=== PATIENT | female | born 1995 | race Two or more races ===

== ENCOUNTER 2020-10-05 13:08 | Emergency (ER) | payer MEDICAID, OTHER ==
[~2020-10-05] VITALS: Ht 154.9 cm; Wt 81.6 kg
[2020-10-05 13:50] VITALS: BP 134/78
== END 2020-10-05 14:58 | disposition home or self-care (01) ==
LOC: ER 13:08
DX: O20.0 Threatened abortion (principal); O23.41 Unspecified infection of urinary tract in pregnancy, first trimester; Z3A.14 14 weeks gestation of pregnancy
CPT/HCPCS: 76805